=== PATIENT | male | born 1995 | race Caucasian/White ===

== ENCOUNTER 2017-02-05 09:41 | Emergency (ER) | payer MEDICAID, OTHER | END 2017-02-05 11:10 | disposition home or self-care (01) | LOC: JP.ED 09:41 | DX: Z53.21 Procedure and treatment not carried out due to patient leaving prior to being seen by health care provider (principal) ==

== ENCOUNTER 2017-02-09 19:26 | Emergency (ER) | payer MEDICAID ==
--- NOTE | 2017-02-09 20:05 | EDM.PDOC ---
ED HPI GENERAL MEDICAL PROBLEM - General Chief Complaint: ENT Problem Stated Complaint: TOOTH PAIN Time Seen by Provider: 02/09/17 19:53 Source of Information: Reports: Patient, RN Notes Reviewed History Limitations: Reports: No Limitations - History of Present Illness INITIAL COMMENTS - FREE TEXT/NARRATIVE: Here with his Chief complaint Dental pain History of present illness 21-year-old male who's had right upper dental pain for nearly 3 weeks. Has upcoming dental appointment Has not seen a physician about this Has been using ibuprofen Aleve and Orajel for pain. No fever no vomiting It has been interfering with his sleep. Previous dental extraction on the left side No facial swelling Right Tooth/Teeth Pain Score (Numeric/FACES): 6 - Related Data Allergies Allergy/AdvReac Type Severity Reaction Status Date / Time No Known Allergies Allergy Verified 02/09/17 19:37 Home Meds: Home Meds Hydrocodone/Acetaminophen [Hydrocodon-Acetaminophen 5-325] 1 - 2 each PO Q4H PRN #12 tablet 02/09/17 [Rx] Penicillin V Potassium 500 mg PO Q8HR #30 tab 02/09/17 [Rx] Past Medical History - Past Health History Medical/Surgical History: Denies Medical/Surgical History HEENT History: Reports: Other (See Below) Other HEENT History: R oral pain past 2 weeks Social & Family History - Tobacco Use Smoking Status *Q: Current Every Day Smoker Years of Tobacco use: 7 Packs/Tins Daily: 0.1 - Caffeine Use Caffeine Use: Reports: Coffee ED ROS ENT - Review of Systems Review Of Systems: ROS reveals no pertinent complaints other than HPI. HEENT: Reports: Dental Pain ED EXAM, ENT - Physical Exam Exam: See Below Exam Limited By: No Limitations General Appearance: Alert, Mild Distress, Other (Appears well, normal vital signs) Eye Exam: Bilateral Eye: Normal Inspection Ears: Normal External Exam, Normal Canal, Normal TMs Nose: Normal Inspection Mouth/Throat: Normal Gums, Normal Lips, Normal Oropharynx, Dental Pain, Other ( Dental caries right upper first molar and left upper third molar, the right upper first molar is the tender 1) Head: Atraumatic Neck: Normal Inspection, Non-Tender. No: Lymphadenopathy (R), Lymphadenopathy ( L) Respiratory/Chest: No Respiratory Distress, No Accessory Muscle Use Neurological: Alert, Oriented Course - Vital Signs Last Recorded V/S: Last Vital Signs Temp 36.6 C 02/09/17 19:35 Pulse 74 02/09/17 19:35 Resp 18 02/09/17 19:35 BP 137/62 02/09/17 19:35 Pulse Ox - Re-Assessments/Exams Free Text/Narrative Re-Assessment/Exam: 02/09/17 20:20 21-year-old male with dental caries causing dental pain Has dental appointment for follow-up C prescriptions below Departure - Departure Time of Disposition: 20:04 Disposition: Home, Self-Care 01 Condition: Good Clinical Impression: Dental caries - Discharge Information Prescriptions: Penicillin V Potassium 500 mg PO Q8HR #30 tab Hydrocodone/Acetaminophen [Hydrocodon-Acetaminophen 5-325] 1 - 2 each PO Q4H PRN #12 tablet PRN Reason: Moderate to severe pain Instructions: Dental Caries Referrals: PCP,None [Primary Care Provider] - Forms: ED Department Discharge Additional Instructions: Make sure you see dentist as soon as possible
== END 2017-02-09 20:13 | disposition home or self-care (01) ==
LOC: JP.ED 19:26
DX: K02.9 Dental caries, unspecified (principal); F17.210 Nicotine dependence, cigarettes, uncomplicated
CPT/HCPCS: 99283

== ENCOUNTER 2017-06-23 04:19 | Emergency (ER) | payer SELFPAY ==
--- NOTE | 2017-06-23 04:41 | EDM.PDOC ---
ED HPI GENERAL MEDICAL PROBLEM - General Chief Complaint: Lower Extremity Injury/Pain Stated Complaint: BROKE RIGHT BIG TOE? Time Seen by Provider: 06/23/17 04:37 Source of Information: Reports: Patient, Family, RN Notes Reviewed History Limitations: Reports: No Limitations - History of Present Illness INITIAL COMMENTS - FREE TEXT/NARRATIVE: 21-year-old gentleman presents to the emergency department today for evaluation of his great toe on his right foot. Unfortunately he was at work he dropped a wooden pallet on his great toe he has limited range of motion and he did break the skin. Right Feet Pain Score (Numeric/FACES): 8 - Related Data Allergies Allergy/AdvReac Type Severity Reaction Status Date / Time No Known Allergies Allergy Verified 02/09/17 19:37 Home Meds: Home Meds Hydrocodone/Acetaminophen [Hydrocodon-Acetaminophen 5-325] 1 - 2 each PO Q4H PRN #12 tablet 02/09/17 [Rx] Penicillin V Potassium 500 mg PO Q8HR #30 tab 02/09/17 [Rx] Past Medical History HEENT History: Reports: Other (See Below) Other HEENT History: R oral pain past 2 weeks Social & Family History - Tobacco Use Smoking Status *Q: Former Smoker Years of Tobacco use: 7 Packs/Tins Daily: 0.1 Used Tobacco, but Quit: Yes Month/Year Tobacco Last Used: may - Caffeine Use Caffeine Use: Reports: Soda - Recreational Drug Use Recreational Drug Use: No Review of Systems - Review of Systems Review Of Systems: See Below Musculoskeletal: Reports: Other Skin: Reports: Wound ED EXAM, GENERAL - Physical Exam Exam: See Below Free Text/Narrative:: Examination right foot I do appreciate a small amount of bleeding along the cuticle there is no significant subungual hematoma forming is limited range of motion of the toe there is mild amount of edema he is tender to touch over the great toe pedal pulse +2 tenderness the ankle Exam Limited By: No Limitations General Appearance: Alert, WD/WN, No Apparent Distress Course - Vital Signs Last Recorded V/S: Last Vital Signs Temp 97.5 F 06/23/17 04:31 Pulse 67 06/23/17 04:31 Resp 16 06/23/17 04:31 BP 132/64 06/23/17 04:31 Pulse Ox 98 06/23/17 04:31 - Orders/Labs/Meds Orders: Active Orders 24 hr Category Date Time Status Vaccines to be Administered [RC] PER UNIT ROUTINE Care 06/23/17 04:43 Ordered Toes Great Toe Rt T5 [CR] Stat Exams 06/23/17 04:38 Ordered Meds: Medications Discontinued Medications Generic Name Dose Route Start Last Admin Trade Name Katerin PRN Reason Stop Dose Admin Diphtheria/Tetanus/Acell Pertussis 0.5 ml 06/23/17 04:43 06/23/17 04:48 Adacel IM 06/23/17 04:44 0.5 ml .ONCE ONE Administration Departure - Departure Time of Disposition: 05:26 Disposition: Home, Self-Care 01 Condition: Good Clinical Impression: Contusion of toe of right foot Qualifiers: Encounter type: initial encounter Toe: great toe Damage to nail status: with damage Qualified Code(s): S90.211A - Contusion of right great toe with damage to nail, initial encounter - Discharge Information Referrals: PCP,None [Primary Care Provider] - Forms: ED Department Discharge Additional Instructions: Use Tylenol or Motrin as needed for pain control, Please followup with your primary care provider in 3-5 days if not better, please call return to the emergency department with worsening of symptoms. - My Orders Last 24 Hours: My Active Orders 06/23/17 04:38 Toes Great Toe Rt T5 [CR] Stat 06/23/17 04:43 Vaccines to be Administered [RC] PER UNIT ROUTINE - Assessment/Plan Last 24 Hours: My Active Orders 06/23/17 04:38 Toes Great Toe Rt T5 [CR] Stat 06/23/17 04:43 Vaccines to be Administered [RC] PER UNIT ROUTINE Plan: Assessment Acuity = acute Site and laterality = contusion great toe right foot Etiology = secondary to crush injury would palate Manifestations = none Location of injury = work Lab values = x-ray great toe just I did review films myself I cannot appreciate any acute process, the official read from radiology is pending Plan Tetanus was updated today, follow-up with primary care next 3-5 days if no improvement Tylenol or Motrin as needed for pain control This note was dictated using [employer] voice recognition software please call with any questions on syntax or jones.
[2017-06-23] MEDS: Diphtheria,Pertussis(Acell),Tetanus Vaccine 0.5 ML SDV IM ONE (04:48)
--- NOTE | 2017-06-23 08:53 | CR ---
Toes Great Toe Rt T5 HISTORY: crush injury pain FINDINGS: No acute fracture or dislocation is identified. Bony architecture and joint spaces are preserved. S oft tissues are unremarkable. IMPRESSION: No acute right great toe abnormality is identified.
== END 2017-06-23 05:32 | disposition home or self-care (01) ==
LOC: JP.ED 04:19
DX: S90.211A Contusion of right great toe with damage to nail, initial encounter (principal); Z87.891 Personal history of nicotine dependence; W20.8XXA Other cause of strike by thrown, projected or falling object, initial encounter; Y99.0 Civilian activity done for income or pay
CPT/HCPCS: 73660-26-T5; 73660-T5; 90471; 90715; 99284-25

== ENCOUNTER 2018-10-31 06:24 | Emergency (ER) | payer SELFPAY ==
--- NOTE | 2018-10-31 07:27 | EDM.PDOC ---
ED HPI GENERAL MEDICAL PROBLEM - General Chief Complaint: Gastrointestinal Problem Stated Complaint: VOMING SHAKING VERY WEAK Time Seen by Provider: 10/31/18 07:10 Source of Information: Reports: Patient, Family History Limitations: Reports: No Limitations - History of Present Illness INITIAL COMMENTS - FREE TEXT/NARRATIVE: 23-year-old male with nausea and vomiting for the past 5 hours. No fevers or chills, no abdominal pain, he has some diarrhea. No exposure to illness he knows of. Onset: Sudden (Fairly sudden onset at 2 AM) - Related Data Allergies Allergy/AdvReac Type Severity Reaction Status Date / Time No Known Allergies Allergy Verified 10/31/18 07:11 Home Meds: Home Meds NK [No Known Home Meds] 10/31/18 [History] Past Medical History - Past Health History Medical/Surgical History: Denies Medical/Surgical History HEENT History: Reports: Other (See Below) Other HEENT History: R oral pain past 2 weeks Social & Family History - Tobacco Use Smoking Status *Q: Current Every Day Smoker Years of Tobacco use: 7 Packs/Tins Daily: 0.5 - Caffeine Use Caffeine Use: Reports: Soda - Recreational Drug Use Recreational Drug Use: No ED ROS GENERAL - Review of Systems Review Of Systems: See Below Constitutional: Reports: Malaise, Decreased Appetite. Denies: Fever, Chills HEENT: Reports: No Symptoms Respiratory: Denies: Shortness of Breath Cardiovascular: Denies: Chest Pain GI/Abdominal: Reports: Diarrhea, Nausea, Vomiting. Denies: Abdominal Pain : Reports: No Symptoms Skin: Reports: No Symptoms Neurological: Reports: Weakness. Denies: Headache ED EXAM, GI/ABD - Physical Exam Exam: See Below Exam Limited By: No Limitations General Appearance: Alert, No Apparent Distress Eyes: Bilateral: Normal Appearance (No jaundice) Head: Atraumatic Respiratory/Chest: No Respiratory Distress, Lungs Clear Cardiovascular: Regular Rate, Rhythm. No: Tachycardia GI/Abdominal Exam: Normal Bowel Sounds, Soft, Non-Tender Neurological: Alert, Oriented Psychiatric: Normal Affect, Normal Mood Course - Vital Signs Last Recorded V/S: Last Vital Signs Temp 95 F L 10/31/18 07:10 Pulse 63 10/31/18 07:10 Resp 16 10/31/18 07:10 BP 139/86 10/31/18 07:10 Pulse Ox 97 10/31/18 07:10 - Re-Assessments/Exams Free Text/Narrative Re-Assessment/Exam: 10/31/18 07:26 Patient had a similar episode of symptoms in January and responded well to Zofran and it resolved within 24 hours. He likely has another viral gastroenteritis that will resolve and was given 5 doses of Zofran to use for symptoms. Instructed on how to stay hydrated and will return if worsening. Departure - Departure Time of Disposition: 07:38 Disposition: Home, Self-Care 01 Condition: Good Clinical Impression: Viral gastroenteritis Nausea and vomiting Qualifiers: Vomiting type: unspecified Vomiting Intractability: non-intractable Qualified Code(s): R11.2 - Nausea with vomiting, unspecified - Discharge Information Instructions: Nausea and Vomiting, Adult Referrals: PCP,None [Primary Care Provider] - Forms: ED Department Discharge Care Plan Goals: Stay hydrated as discussed, use Zofran for nausea and vomiting. Rest today and slowly increase diet and activity as tolerated. Consider rechecking in 24-48 hours if not significant improvement, or return sooner if worsening or concerns.
== END 2018-10-31 07:38 | disposition home or self-care (01) ==
LOC: JP.ED 06:24
DX: A08.4 Viral intestinal infection, unspecified (principal); F17.210 Nicotine dependence, cigarettes, uncomplicated
CPT/HCPCS: 99283

== ENCOUNTER 2019-02-08 22:47 | Emergency (ER) | payer SELFPAY ==
--- NOTE | 2019-02-08 23:13 | EDM.PDOC ---
ED HPI GENERAL MEDICAL PROBLEM - General Chief Complaint: ENT Problem Stated Complaint: TOOTHACHE Time Seen by Provider: 02/08/19 23:04 Source of Information: Reports: Patient History Limitations: Reports: No Limitations - History of Present Illness INITIAL COMMENTS - FREE TEXT/NARRATIVE: Patient presents because of severe left upper jaw/cheek/tooth discomfort over the last several days. Pain began towards the back of his left maxillary teeth and now the pain has extended forward by several teeth. He has tried Tylenol at home with no change in symptoms. He has not seen a dentist for some time. It is too uncomfortable to even sleep. Onset: Gradual Duration: Day(s): (3) Location: Reports: Head Quality: Reports: Ache, Sharp, Throbbing Severity: Moderate Improves with: Reports: None Worsens with: Reports: Other (Chewing.) Associated Symptoms: Reports: No Other Symptoms - Related Data Allergies Allergy/AdvReac Type Severity Reaction Status Date / Time No Known Allergies Allergy Verified 02/08/19 22:57 Home Meds: Home Meds NK [No Known Home Meds] 10/31/18 [History] Past Medical History - Past Health History Medical/Surgical History: Denies Medical/Surgical History HEENT History: Reports: Other (See Below) Other HEENT History: R oral pain past 2 weeks Social & Family History - Tobacco Use Smoking Status *Q: Current Every Day Smoker Years of Tobacco use: 3 Packs/Tins Daily: 0.5 - Caffeine Use Caffeine Use: Reports: Coffee, Soda - Recreational Drug Use Recreational Drug Use: No ED ROS ENT - Review of Systems Review Of Systems: Comprehensive ROS is negative, except as noted in HPI. ED EXAM, ENT - Physical Exam Exam: See Below Exam Limited By: No Limitations General Appearance: Moderate Distress Mouth/Throat: Dental Pain (There is pain in the vicinity of teeth #13, 14, 15.) , Dental Tenderness, Gum Swelling Course - Vital Signs Last Recorded V/S: Last Vital Signs Temp 36.2 C 02/08/19 22:57 Pulse 70 02/08/19 22:57 Resp 16 02/08/19 22:57 BP 137/77 02/08/19 22:57 Pulse Ox 94 L 02/08/19 22:57 - Orders/Labs/Meds Meds: Medications Discontinued Medications Generic Name Dose Route Start Last Admin Trade Name Freq PRN Reason Stop Dose Admin Amoxicillin 500 mg 02/08/19 23:17 02/08/19 23:24 Amoxil PO 02/08/19 23:18 500 mg ONETIME ONE Administration Bupivacaine HCl/Epinephrine Bitart 1.8 ml 02/08/19 23:17 02/08/19 23:24 Marcaine 0.5%/Epinephrine 1:200,000 INJECT 02/08/19 23:18 1.8 ml ONETIME ONE Administration - Re-Assessments/Exams Free Text/Narrative Re-Assessment/Exam: 02/09/19 02:10 I discussed options for treating his symptoms. He is very uncomfortable and doesn't think he will be able to sleep tonight. I offered to perform a dental block and he agreed. 1 mL of bupivacaine with epinephrine was used to infiltrate the amadeo-gingival regions adjacent to teeth #13, 14, 15. On return 30 minutes later, he had no pain at all and had some anesthesia extending out onto the buccal mucosa as well. He was given a single tablet of amoxicillin 500 mg here and sent with a prescription for an additional 7 days of the same antibiotic. Recommend ibuprofen 800 mg 3 times a day or Aleve 2 tablets twice a day regularly for discomfort. He can cover the affected teeth with sugar-free gum to reduce air exposure. Salt water rinses, 2 minutes duration, multiple times a day will be helpful. Contact dentist of choice to arrange follow-up for next week. Reasons to return to emergency department reviewed. Departure - Departure Time of Disposition: 00:16 Disposition: Home, Self-Care 01 Clinical Impression: Dental caries, Dental abscess - Discharge Information *PRESCRIPTION DRUG MONITORING PROGRAM REVIEWED*: Not Applicable *COPY OF PRESCRIPTION DRUG MONITORING REPORT IN PATIENT JAVIER: Not Applicable Instructions: Dental Abscess, [id number] Referrals: PCP,None [Primary Care Provider] - Forms: ED Department Discharge Additional Instructions: Start amoxicillin antibiotic today and take for the next week. You can use sugar -free gum compressed over the broken tooth surfaces to reduce pain. Ibuprofen 800 mg 3 times a day for pain. Salt water swishes in the mouth 4 times daily for 2 minutes at a time. Contact a local dentist to arrange a follow-up evaluation for next week. Return to ER if feeling worse in anyway. Sepsis Event Note - Evaluation Sepsis Screening Result: No Definite Risk - Focused Exam Vital Signs: Vital Signs Temp Pulse Resp BP Pulse Ox 02/08/19 22:57 36.2 C 70 16 137/77 94 L 02/08/19 22:55 36.2 C 70 16 137/77 94 L Date Exam was Performed: 02/09/19 Time Exam was Performed: 02:02
[2019-02-08] MEDS ORDERED: Bupivacaine 0.5%/EPINEPHrine 1:200,000 1.8 ML Cartridge INJECT ONE (23:17)
[2019-02-08] MEDS ORDERED: Amoxicillin 500 MG Cap PO ONE (23:17)
== END 2019-02-09 00:38 | disposition home or self-care (01) ==
LOC: JP.ED 22:47
DX: K02.9 Dental caries, unspecified (principal); K04.7 Periapical abscess without sinus; F17.210 Nicotine dependence, cigarettes, uncomplicated
CPT/HCPCS: 64400; 99282; 99283; A9270; J3490

== ENCOUNTER 2019-03-16 12:41 | Emergency (ER) | payer SELFPAY ==
--- NOTE | 2019-03-16 13:12 | EDM.PDOC ---
ED HPI GENERAL MEDICAL PROBLEM - General Chief Complaint: Back Pain or Injury Stated Complaint: RIGHT SIDE LOWER BACK PAIN Time Seen by Provider: 03/16/19 12:55 Source of Information: Reports: Patient History Limitations: Reports: No Limitations - History of Present Illness INITIAL COMMENTS - FREE TEXT/NARRATIVE: 23-year-old male with no previous back problems, slid down a hill yesterday while walking his dog pulling his right lower back and landing awkwardly on the right buttock. He had trouble sleeping last night because of the discomfort and today at work while lifting objects he felt he just could not do it. He has no pain radiating down the leg. No abdominal pain or urinary symptoms. He is in to get a work note and get checked out. Onset: Sudden Duration: Hour(s): (Incident occurred just over 24 hours ago) Location: Reports: Back (Right lower back) Quality: Reports: Ache, Sharp (With movement) Context: Reports: Trauma (Slipped and fell after being pulled awkwardly) Associated Symptoms: Reports: No Other Symptoms Right Middle Back Pain Score (Numeric/FACES): 6 - Related Data Allergies Allergy/AdvReac Type Severity Reaction Status Date / Time No Known Allergies Allergy Verified 03/16/19 12:49 Home Meds: Home Meds NK [No Known Home Meds] 10/31/18 [History] Past Medical History - Past Health History Medical/Surgical History: Denies Medical/Surgical History HEENT History: Reports: Other (See Below) Other HEENT History: R oral pain past 2 weeks Social & Family History - Tobacco Use Smoking Status *Q: Current Every Day Smoker Years of Tobacco use: 6 Packs/Tins Daily: 0.5 - Caffeine Use Caffeine Use: Reports: Coffee, Soda - Recreational Drug Use Recreational Drug Use: No ED ROS GENERAL - Review of Systems Review Of Systems: See Below Constitutional: Denies: Fever, Chills Respiratory: Reports: No Symptoms Cardiovascular: Reports: No Symptoms GI/Abdominal: Reports: No Symptoms : Reports: No Symptoms Skin: Denies: Bruising, Erythema Neurological: Denies: Paresthesia ED EXAM,LOWER BACK PAIN/INJURY - Physical Exam Exam: See Below Text/Narrative:: Patient was sitting on the exam bed fairly comfortable, when I asked him to stand to check his back he did so with very little difficulty. Exam Limited By: No Limitations General Appearance: Alert, No Apparent Distress Head: Atraumatic Neck: Normal Inspection Respiratory/Chest: No Respiratory Distress Back Exam: Paraspinal Tenderness (Right paralumbar area is sensitive to palpation, as well as the SI joint area. No bruising or redness, no asymmetry.) Neurological: No Motor/Sensory Deficits (No straight leg raising symptoms) Course - Vital Signs Last Recorded V/S: Last Vital Signs Temp 97.4 F 03/16/19 12:53 Pulse 77 03/16/19 12:53 Resp 14 03/16/19 12:53 BP 133/68 03/16/19 12:53 Pulse Ox 97 03/16/19 12:53 - Re-Assessments/Exams Free Text/Narrative Re-Assessment/Exam: 03/16/19 13:11 Patient was encouraged to increase activity as tolerated, continue with anti- inflammatories, and was given 15 Flexeril to take up to 3 times daily for muscle relaxation, especially when trying to rest. He was given a note for work for today and tomorrow and should recheck next week if unable to return to work. Departure - Departure Time of Disposition: 13:17 Disposition: Home, Self-Care 01 Clinical Impression: Low back strain Qualifiers: Encounter type: initial encounter Qualified Code(s): S39.012A - Strain of muscle, fascia and tendon of lower back, initial encounter - Discharge Information Instructions: Low Back Sprain Referrals: PCP,None [Primary Care Provider] - Forms: ED Department Discharge Care Plan Goals: Increase activity as tolerated, continue with anti-inflammatories and use muscle relaxers as needed especially when trying to rest. Consider rechecking next week if not improving satisfactorily. Sepsis Event Note - Evaluation Sepsis Screening Result: No Definite Risk - Focused Exam Vital Signs: Vital Signs Temp Pulse Resp BP Pulse Ox 03/16/19 12:53 97.4 F 77 14 133/68 97 Date Exam was Performed: 03/16/19 Time Exam was Performed: 13:24
== END 2019-03-16 13:17 | disposition home or self-care (01) ==
LOC: JP.ED 12:41
DX: S39.012A Strain of muscle, fascia and tendon of lower back, initial encounter (principal); F17.210 Nicotine dependence, cigarettes, uncomplicated; W01.0XXA Fall on same level from slipping, tripping and stumbling without subsequent striking against object, initial encounter
CPT/HCPCS: 99283

== ENCOUNTER 2019-10-03 22:51 | Emergency (ER) | payer SELFPAY ==
--- NOTE | 2019-10-03 23:54 | EDM.PDOC ---
ED HPI GENERAL MEDICAL PROBLEM - General Chief Complaint: ENT Problem Stated Complaint: TOOTH PAIN RT SIDE OF MOUTH/ HEAD ACHE Time Seen by Provider: 10/03/19 23:35 Source of Information: Reports: Patient, RN History Limitations: Reports: No Limitations - History of Present Illness INITIAL COMMENTS - FREE TEXT/NARRATIVE: Gadiel presents to the ED with c/o right sided tooth pain. Been ongoing for 5 days. rates the pain as sharp and severe and is affecting his ability to sleep. On his right upper jaw, his first molar is broken off almost to the gumline- he has decay of the lateral edge of his central incisor. He c/o dental pain of all his molars on the lower right side. Does admit to drinking Mountain Dew and Coca-[employer]a daily. Does not remember the last time he has seen a dentist. Does not have dental insurance. 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 right side dental Pain Score (Numeric/FACES): 5 - Related Data Allergies Allergy/AdvReac Type Severity Reaction Status Date / Time No Known Allergies Allergy Verified 10/03/19 23:21 Home Meds: Home Meds NK [No Known Home Meds] 10/31/18 [History] Past Medical History - Past Health History Medical/Surgical History: Denies Medical/Surgical History HEENT History: Reports: Other (See Below) Other HEENT History: R oral pain past 2 weeks - Infectious Disease History Infectious Disease History: Reports: Chicken Pox Social & Family History - Tobacco Use Smoking Status *Q: Current Every Day Smoker Years of Tobacco use: 6 Packs/Tins Daily: 0.7 - Caffeine Use Caffeine Use: Reports: Soda - Recreational Drug Use Recreational Drug Use: No ED ROS ENT - Review of Systems Review Of Systems: Comprehensive ROS is negative, except as noted in HPI. ED EXAM, ENT - Physical Exam Exam: See Below Exam Limited By: No Limitations General Appearance: Alert, WD/WN, No Apparent Distress Ears: Normal External Exam, Normal Canal, Hearing Grossly Normal, Normal TMs. No: Mastoid Swelling, Mastoid Tenderness Nose: Normal Inspection, Normal Mucousa Mouth/Throat: Normal Inspection, Normal Oropharynx, Dental Pain (right upper and right lower teeth) Head: Atraumatic, Normocephalic Neck: Normal Inspection, Supple, Non-Tender Respiratory/Chest: No Respiratory Distress Neurological: Alert, Oriented Psychiatric: Normal Affect, Normal Mood Skin: Warm, Dry, Intact Course - Vital Signs Last Recorded V/S: Last Vital Signs Temp 97.7 F 10/03/19 23:26 Pulse 62 10/03/19 23:26 Resp 16 10/03/19 23:26 BP 113/79 10/03/19 23:26 Pulse Ox 97 10/03/19 23:26 Departure - Departure Time of Disposition: 23:50 Disposition: Home, Self-Care 01 Clinical Impression: Dental caries, Dental abscess - Discharge Information Instructions: Dental Abscess, [id number] Referrals: PCP,None [Primary Care Provider] - Forms: ED Department Discharge Additional Instructions: Take your antibiotic twice daily for 7 days. Do not stop it early. Take 600mg of ibuprofen every 6 hours scheduled- take with food- for baseline pain control. Take the norco 5/325 (10 prescribed) for breakthrough pain and at bedtime as needed. Do not drive or operate machinery while taking your [place]. Avoid all sugary drinks, candies, and foods to help with the dental pain. A referral to the [facility] dentist has been made. Call them for an appointment. Sepsis Event Note (ED) - Evaluation Sepsis Screening Result: No Definite Risk - Focused Exam Vital Signs: Vital Signs Temp Pulse Resp BP Pulse Ox 10/03/19 23:26 97.7 F 62 16 113/79 97 10/03/19 23:12 97.7 F 62 16 113/79 97 - Assessment/Plan Plan: Plan: referral to [facility] dental clinic. Amoxicillin (1000mg BID x7d) and [place] 5/325mg (10 tabs) prn for pain prescribed. discharge home. patient is agreeable to plan
== END 2019-10-04 00:06 | disposition home or self-care (01) ==
LOC: JP.ED 22:51
DX: K04.7 Periapical abscess without sinus (principal); K02.9 Dental caries, unspecified; F17.210 Nicotine dependence, cigarettes, uncomplicated
CPT/HCPCS: 99282

== ENCOUNTER 2020-08-01 13:29 | Emergency (ER) | payer SELFPAY ==
--- NOTE | 2020-08-01 15:27 | EDM.PDOC ---
ED HPI GENERAL MEDICAL PROBLEM - General Chief Complaint: Respiratory Problem Stated Complaint: HORRIBLE COUGH, DRY/SORE THOART Time Seen by Provider: 08/01/20 15:05 Source of Information: Reports: Patient, Family, Old Records History Limitations: Reports: No Limitations - History of Present Illness INITIAL COMMENTS - FREE TEXT/NARRATIVE: 25 yo male here with a couple days of progressive tooth pain and also a cough with rhinorrhea. No fever or facial swelling. Is working on getting a dentist appt. Does smoke. No hx of asthma. Onset: Gradual Onset Date: 07/30/20 Duration: Day(s): (2), Getting Worse Location: Reports: Face (L posterior mandible), Chest (cough) Quality: Reports: Ache (tooth) Severity: Moderate Improves with: Reports: None Worsens with: Reports: Other (time) Context: Reports: Other (See HPI) Associated Symptoms: Reports: No Other Symptoms. Denies: Fever/Chills Treatments CELLAR HAND: Reports: Other (see below) (none) Left Upper Oral/Mouth Pain Score (Numeric/FACES): 7 - Related Data Allergies Allergy/AdvReac Type Severity Reaction Status Date / Time No Known Allergies Allergy Verified 08/01/20 14:32 Home Meds: Home Meds Hydrocodone/Acetaminophen [Hydrocodon-Acetaminophen 5-325] 1 - 2 each PO Q6H PRN #16 tablet 08/01/20 [Rx] Penicillin V Potassium [Veetids] 500 mg PO Q6H #40 tab 08/01/20 [Rx] Past Medical History - Past Health History Medical/Surgical History: Denies Medical/Surgical History HEENT History: Reports: Other (See Below) Other HEENT History: R oral pain past 2 weeks - Infectious Disease History Infectious Disease History: Reports: Chicken Pox, Novel Coronavirus Social & Family History - Tobacco Use Tobacco Use Status *Q: Current Every Day Tobacco User Years of Tobacco use: 5 Packs/Tins Daily: 0.5 - Caffeine Use Caffeine Use: Reports: Energy Drinks - Recreational Drug Use Recreational Drug Use: No ED ROS GENERAL - Review of Systems Review Of Systems: See Below Constitutional: Denies: Fever, Chills HEENT: Reports: Dental Pain, Other (bad taste in his mouth) Respiratory: Reports: Cough Cardiovascular: Reports: No Symptoms Endocrine: Reports: No Symptoms GI/Abdominal: Reports: No Symptoms : Reports: No Symptoms Musculoskeletal: Reports: No Symptoms Skin: Reports: No Symptoms Neurological: Reports: No Symptoms Psychiatric: Reports: No Symptoms ED EXAM, GENERAL - Physical Exam Exam: See Below Exam Limited By: No Limitations General Appearance: Alert, WD/WN, No Apparent Distress Eye Exam: Bilateral Eye: Normal Inspection Ears: Normal External Exam, Normal Canal, Hearing Grossly Normal, Normal TMs Ear Exam: Bilateral Ear: Auricle Normal, Canal Normal, TM normal Nose: Normal Inspection, No Blood, Clear Rhinorrhea Throat/Mouth: Normal Lips, Normal Oropharynx, Normal Voice, No Airway Compromise. No: Normal Teeth (broken L mandibular wisdom tooth, decay present) Head: Atraumatic, Normocephalic. No: Facial Swelling Neck: Normal Inspection. No: Lymphadenopathy (R), Lymphadenopathy (L) Respiratory/Chest: No Respiratory Distress, Lungs Clear, Normal Breath Sounds. No: Rales, Rhonchi, Wheezing Cardiovascular: Regular Rate, Rhythm, No Edema Extremities: Normal Inspection Neurological: Alert, Oriented, CN II-XII Intact, Normal Cognition, No Motor/Sensory Deficits Psychiatric: Normal Affect, Normal Mood Skin Exam: Warm, Dry, Intact, Normal Color, No Rash Course - Vital Signs Last Recorded V/S: Last Vital Signs Temp 36.7 C 08/01/20 14:30 Pulse 69 08/01/20 14:30 Resp 18 08/01/20 14:30 BP 141/97 H 08/01/20 14:30 Pulse Ox 97 08/01/20 14:30 Departure - Departure Time of Disposition: 15:27 Disposition: Home, Self-Care 01 Condition: Fair Clinical Impression: Dental infection, Viral URI with cough, Tobacco use - Discharge Information *PRESCRIPTION DRUG MONITORING PROGRAM REVIEWED*: No *COPY OF PRESCRIPTION DRUG MONITORING REPORT IN PATIENT JAVIER: No Prescriptions: Hydrocodone/Acetaminophen [Hydrocodon-Acetaminophen 5-325] 1 - 2 each PO Q6H PRN #16 tablet PRN Reason: Pain Penicillin V Potassium [Veetids] 500 mg PO Q6H #40 tab Instructions: Dental Abscess, [id number] Referrals: PCP,None [Primary Care Provider] - Additional Instructions: Use the penicillin as directed until gone. Take ibuprofen 600 mg every 6 hrs with food and if needed hydrocodone for more pain relief. May use Delsym or Robitussin DM for cough. No smoking. See your primary care provider as needed. See a dentist [facility]. Sepsis Event Note (ED) - Evaluation Sepsis Screening Result: No Definite Risk - Focused Exam Vital Signs: Vital Signs Temp Pulse Resp BP Pulse Ox 08/01/20 14:30 36.7 C 69 18 141/97 H 97 08/01/20 14:13 36.7 C 69 18 141/97 H 97
== END 2020-08-01 15:33 | disposition home or self-care (01) ==
LOC: JP.ED 13:29
DX: J06.9 Acute upper respiratory infection, unspecified (principal); K04.7 Periapical abscess without sinus; Z72.0 Tobacco use
CPT/HCPCS: 99283

== ENCOUNTER 2022-02-24 14:35 | Emergency (ER) | payer SELFPAY | END 2022-02-24 15:40 | disposition home or self-care (01) | LOC: JP.ED 14:35 | DX: K04.7 Periapical abscess without sinus (principal); F17.210 Nicotine dependence, cigarettes, uncomplicated; Z86.16 Personal history of COVID-19 | CPT/HCPCS: 99282 ==

== ENCOUNTER 2022-06-01 20:48 | Emergency (ER) | payer SELFPAY | END 2022-06-01 21:57 | disposition home or self-care (01) | LOC: JP.ED 20:48 | DX: K04.7 Periapical abscess without sinus (principal); K02.9 Dental caries, unspecified; Z72.0 Tobacco use; Z86.16 Personal history of COVID-19 | CPT/HCPCS: 99282 ==

== ENCOUNTER 2022-11-27 20:58 | Emergency (ER) | payer OTHER | END 2022-11-27 23:14 | disposition home or self-care (01) | LOC: JP.ED 20:58 | DX: S00.83XA Contusion of other part of head, initial encounter (principal); F17.210 Nicotine dependence, cigarettes, uncomplicated; Z86.16 Personal history of COVID-19; W20.8XXA Other cause of strike by thrown, projected or falling object, initial encounter; Y92.59 Other trade areas as the place of occurrence of the external cause; Y99.0 Civilian activity done for income or pay | CPT/HCPCS: 70450; 72125; 76377; 99001; 99283 ==

== ENCOUNTER 2022-12-15 15:48 | Emergency (ER) | payer OTHER | END 2022-12-15 17:01 | disposition home or self-care (01) | LOC: JP.ED 15:48 | DX: M77.8 Other enthesopathies, not elsewhere classified (principal); M70.80 Other soft tissue disorders related to use, overuse and pressure of unspecified site; F17.210 Nicotine dependence, cigarettes, uncomplicated; Z86.16 Personal history of COVID-19 | CPT/HCPCS: 99282; 99283 ==

== ENCOUNTER 2023-01-30 20:44 | Emergency (ER) | payer SELFPAY ==
[2023-01-30] MEDS ORDERED: Proparacaine 0.5% Ophth Soln 15 ML Bottle EYERT ONE (22:02)
[2023-01-30] MEDS ORDERED: Fluorescein 1 MG Ophth Strip EYEBOTH ONE (22:02)
[2023-01-30] MEDS ORDERED: Ofloxacin 0.3% Ophth Soln 5 ML Bottle EYERT ONE (22:20)
== END 2023-01-30 22:45 | disposition home or self-care (01) ==
LOC: JP.ED 20:44
DX: H16.001 Unspecified corneal ulcer, right eye (principal); J06.9 Acute upper respiratory infection, unspecified; F17.210 Nicotine dependence, cigarettes, uncomplicated; Z86.16 Personal history of COVID-19
CPT/HCPCS: 99282; A9270